=== PATIENT | male | born 1990 | race Caucasian/White ===

== ENCOUNTER 2020-10-14 18:13 | Emergency (ER) | payer SELFPAY ==
[~2020-10-14] VITALS: Ht 185.5 cm; Wt 81.8 kg
[2020-10-14 18:25] VITALS: BP 157/94
--- NOTE | 2020-10-14 18:25 | ED EENT ---
History of Present Illness General Chief Complaint: Dental Problems/Pain Stated Complaint: BROKEN TOOTH Source: patient Exam Limitations: no limitations History of Present Illness Date Seen by Provider: Oct 14, 2020 Time Seen by Provider: 18:24 Initial Comments 30-year-old male presents with complaint of dental pain for the past 2 months. Allegedly saw a dentist a few days ago and was told that he could not repair it and he needed to go to another dentist. Patient states that the other Dentist wanted $600 and so he never went. Currently taking Hydrocodone, but not helping. Also states he is taking clindamycin. No face or jaw swelling. No dental injury. Allergies and Home Medications Allergies Coded Allergies: Penicillins (Verified Allergy, Unknown, 10/14/20) morphine (Verified Allergy, Unknown, 10/14/20) Patient Home Medication List Home Medication List Reviewed: Yes Review of Systems Review of Systems Constitutional: No chills, No fever, No malaise Mouth: see HPI, pain; denies swelling, denies purulent discharge, denies previous injury Throat: no symptoms reported Skin: No change in color, No lesions, No lumps Past Seyelby-Bqibty-Gfkapv Hx Past Med/Social Hx: Reviewed Nursing Past Med/Soc Hx Physical Exam Vital Signs Vital Signs - First Documented 10/14/20 18:25 Temp 36.2 Pulse 88 Resp 20 B/P (MAP) 157/94 (115) Pulse Ox 100 O2 Delivery Room Air Height, Weight, BMI Height: '" Weight: lbs. oz. kg; BMI Method: General Appearance: WD/WN, other (anxious) Mouth/Throat: dental tenderness (without gum swelling or abscess formation. Left post molar with chronic caries, no other gross abnl.); No excessive drooling, No mandibular swelling, No maxillary swelling, No pharynx swelling, No tongue swollen, No tonsillar exudate, No tonsillar swelling, No trismus, No uvula swelling, No voice changes Progress/Results/Core Measures Results/Orders Vital Signs/I&O 10/14/20 18:25 Temp 36.2 Pulse 88 Resp 20 B/P (MAP) 157/94 (115) Pulse Ox 100 O2 Delivery Room Air Progress Progress Note : Progress Note patient very aggressive from initial introduction, stating nothing helps and what could he take for the pain. I explained antibiotics and motrin, then see a dentist for repair. He states he is already taking that and nothing helps. I offered to do a dental block and he immediately states, "then what will I take when that wears off?" I replied I would recommend to continue ibuprofen and see a dentist and I was not going to prescribe any narcotics. He became way more belligerent and confrontational as well as irrational. Wanted the dental block, but was way too aggressive and confrontational to do it safely. He was threatening and I kindly decided not to go through with the procedure as he only wanted to verbally fight with me at this point. Patient left prior to Discharge. Departure Impression Primary Impression: Dental caries Additional Impression: Drug-seeking behavior Disposition: 01 HOME, SELF-CARE Condition: Stable Departure-Patient Inst. Referrals: NO,LOCAL PHYSICIAN (PCP/Family) Primary Care Physician Patient Instructions: Dental Pain (DC) DMITRIY TILLEY DO Oct 14, 2020 18:25
== END 2020-10-14 18:40 | disposition left against medical advice (07) ==
LOC: ER FS 18:16
DX: K02.9 Dental caries, unspecified (principal); Z76.5 Malingerer [conscious simulation]; Z88.0 Allergy status to penicillin
CPT/HCPCS: 99282

== ENCOUNTER 2023-01-26 19:18 | Emergency (ER) | payer SELFPAY ==
[~2023-01-26] VITALS: Ht 185 cm; Wt 80.3 kg
[2023-01-26 19:23] VITALS: BP 143/111
[2023-01-26] MEDS ORDERED: KETOROLAC INJ 30 MG/ML VIAL IM STA (19:27)
--- NOTE | 2023-01-26 19:27 | ED EENT ---
History of Present Illness General Chief Complaint: Dental Problems/Pain Stated Complaint: TOOTH PAIN History of Present Illness Date Seen by Provider: Jan 26, 2023 Time Seen by Provider: 19:25 Initial Comments 32-year-old male presents with tooth pain. He reports has been gone for couple days. He reports he has appointment with his dentist in 2 days. That he is h aving a hard time get the pain under control. He has significant poor dentition on his right side both upper and lower teeth are hurting Allergies and Home Medications Allergies Coded Allergies: Penicillins (Verified Allergy, Unknown, 01/13/23) morphine (Verified Allergy, Unknown, 10/14/20) Patient Home Medication List Home Medication List Reviewed: Yes Clindamycin HCl (Clindamycin HCl) 300 Mg Capsule, 300 MG PO TID Prescribed by: ADINA KINSEY on 01/26/231931 Review of Systems Review of Systems Constitutional: see HPI Mouth: see HPI Throat: no symptoms reported Respiratory: no symptoms reported Cardiovascular: no symptoms reported Gastrointestinal: no symptoms reported Past Sjhrtcc-Eksjix-Dylwkz Hx Seasonal Allergies Seasonal Allergies: No Past Medical History Surgeries: No Respiratory: No Cardiac: No Neurological: No Genitourinary: No Gastrointestinal: No Musculoskeletal: No Endocrine: No HEENT: No Cancer: No Psychosocial: No Integumentary: No Physical Exam Vital Signs Vital Signs - First Documented 01/26/23 19:23 Temp 37.1 Pulse 106 Resp 20 B/P (MAP) 143/111 (122) Pulse Ox 100 O2 Delivery Room Air Height, Weight, BMI Height: '" Weight: lbs. oz. kg; 23.00 BMI Method: General Appearance: WD/WN Mouth/Throat: other (Severe dental caries especially right lower) Cardiovascular: normal peripheral pulses, regular rate, rhythm Respiratory: lungs clear, normal breath sounds Gastrointestinal: non tender, soft Neurologic/Psychiatric: alert, normal mood/affect, oriented x 3 Skin: normal color, warm/dry Progress/Results/Core Measures Results/Orders My Orders Orders - ADINA KINSEY DO Lidocaine 2% Viscous 15 Ml (Xylocaine Vi (01/26/23 19:30) Ketorolac Injection (Ketorolac Injection (01/26/23 19:27) Medications Given in ED Current Medications Medications Dose Ordered Sig/Jason Route Start Time Stop Time Status Last Admin Dose Admin Lidocaine HCl 5 ml ONCE ONCE PO 01/26/23 19:30 01/26/23 19:31 DC 01/26/23 19:33 5 ML Vital Signs/I&O 01/26/23 19:23 Temp 37.1 Pulse 106 Resp 20 B/P (MAP) 143/111 (122) Pulse Ox 100 O2 Delivery Room Air Progress Progress Note : Progress Note Patient with dental infection. We will start him on clindamycin since he is allergic penicillin. Patient has an appointment with a dentist in a couple days. He should be sure to keep that. He is stable and discharged home. He is at increased risk of morbidity and mortality based on social determinants of health. Departure Impression Primary Impression: Dental caries Disposition: HOME, SELF-CARE Condition: Stable Departure-Patient Inst. Referrals: NO,LOCAL PHYSICIAN (PCP/Family) Primary Care Physician Patient Instructions: Dental Pain, Tooth Decay ED, Tooth Abscess (DC) Add. Discharge Instructions: Please follow-up with a dentist as soon as possible for definitive care. You may use topical [id number] lidocaine. You may try ibuprofen gelcaps where you puncture the gel And put the gel directly on the tooth. Do not use tonight due to the medication provided in the ER. You may chew baby aspirin directly over the teeth. Please take antibiotics as prescribed All discharge instructions reviewed with patient and/or family. Voiced understanding. Scripts Clindamycin HCl (Clindamycin HCl) 300 Mg Capsule 300 MG PO TID, #30 CAP Prov: ADINA KINSEY DO 01/26/23 ADINA KINSEY DO Jan 26, 2023 19:27
[2023-01-26] MEDS ORDERED: LIDOCAINE 2% VISCOUS 15 ML UDC PO ONE (19:30)
[2023-01-26] MEDS ORDERED: CLIN-144 PO ×2 (19:30→19:32)
== END 2023-01-26 19:38 | disposition home or self-care (01) ==
LOC: EDUNIT# 19:18 → ER FS 19:20
DX: K02.9 Dental caries, unspecified (principal); Z88.0 Allergy status to penicillin
CPT/HCPCS: 99284